=== PATIENT | male | born 1950 | race Caucasian/White ===

== ENCOUNTER 2022-06-23 09:00 | Inpatient (IN) ==
[~2022-06-23 09:00] MED LIST: LACTATED RINGERS 1,000 ML IV SCH; ceFAZolin 2,000 MG/50 ML DUPLEX IV ONE
[2022-06-23] MEDS ORDERED: DIAZEPAM 5 MG TABLET PO ONE (10:00)
[2022-06-23] MEDS ORDERED: GABAPENTIN 400 MG CAPSULE PO ONE (10:00)
[2022-06-23] MEDS ORDERED: ACETAMINOPHEN 500 MG TABLET PO ONE (10:00)
[2022-06-23] MEDS ORDERED: LIDOCAINE 1% 5 ML VIAL ONE (10:52)
[2022-06-23] MEDS ORDERED: BUPIVACAINE MPF 0.25% 10 ML VIAL ONE (10:52)
[2022-06-23] MEDS ORDERED: TISSUE ADHESIVE 1 EACH APPLICATOR TOP ONE (10:52)
[2022-06-23] MEDS ORDERED: DEXAMETHASONE 4 MG/1 ML VIAL ONE ×3 (11:08→14:08)
[2022-06-23] MEDS ORDERED: LIDOCAINE 2% 5 ML VIAL ONE (11:08)
[2022-06-23] MEDS ORDERED: propofoL 200 MG/20 ML VIAL IV ONE (11:08)
[2022-06-23] MEDS ORDERED: ONDANSETRON 4 MG/2 ML VIAL ONE (11:08)
[2022-06-23] MEDS ORDERED: ROCURONIUM 50 MG/5 ML VIAL IV ONE (11:08)
[2022-06-23] MEDS ORDERED: SEVOFLURANE 1 UNIT/15 MINUTE INH ONE ×11 (11:08→13:11)
[2022-06-23] MEDS ORDERED: fentaNYL 100 MCG/2 ML VIAL ONE ×2 (11:14→13:54)
[2022-06-23] MEDS ORDERED: ACETAMINOPHEN INJ 1,000 MG/100 ML VIAL IV ONE (11:16)
[2022-06-23] MEDS ORDERED: ePHEDrine 50 MG/ML VIAL ONE (11:42)
[2022-06-23] MEDS ORDERED: GLYCOPYRROLATE 0.4 MG/2 ML VIAL ONE (12:03)
[2022-06-23] MEDS ORDERED: PHENYLEPHRINE 1 MG/10 ML SYRINGE IV ONE ×3 (12:03→13:11)
[2022-06-23] MEDS ORDERED: ROPIVACAINE 0.5% 30 ML VIAL ONE (14:08)
[2022-06-23] MEDS ORDERED: SUGAMMADEX 200 MG/2 ML VIAL IV ONE (14:32)
[2022-06-23] MEDS ORDERED: MEPERIDINE 25 MG/1 ML VIAL IV PRN (15:21)
[2022-06-23] MEDS ORDERED: ONDANSETRON 4 MG/2 ML VIAL IV PRN ×2 (15:21→17:06)
[2022-06-23] MEDS ORDERED: diphenhydrAMINE 50 MG/1 ML VIAL IV PRN (15:21)
[2022-06-23] MEDS ORDERED: PROMETHAZINE INJ 25 MG in SODIUM CHLORIDE 0.9% 50 ML IV PRN (15:21)
[2022-06-23] MEDS: HYDROmorphone 1 MG/1 ML SYRINGE IV PRN ×4 (15:40→15:55)
[2022-06-23] MEDS ORDERED: PROMETHAZINE 25 MG/1 ML VIAL ONE (16:04)
[2022-06-23] MEDS ORDERED: HYDROmorphone 1 MG/1 ML SYRINGE IV PRN (17:06)
[2022-06-23] MEDS ORDERED: clonazePAM 0.5 MG TABLET PO PRN (17:06)
[2022-06-23] MEDS ORDERED: PROMETHAZINE 25 MG/1 ML VIAL IM PRN (17:06)
[2022-06-23] MEDS: GABAPENTIN 300 MG CAPSULE PO SCH ×2 (17:24→20:47)
[2022-06-23] MEDS: KETOROLAC 15 MG/1 ML VIAL IV SCH ×2 (17:25→23:01)
[2022-06-23] MEDS: LACTATED RINGERS 1,000 ML IV SCH ×2 (17:25→22:59)
[2022-06-23 17:32] LABS: Basophils # 0.1 10*3/uL (0.0-0.2); Basophils % 0.3 % (0.0-0.8); Eosinophils % 0.2 % (0.00-10.9); Hematocrit 43.5 VOL% (42.0-52.0); Hemoglobin 14.2 GM/DL (14.0-18.0); Immature Granulocytes % 0.8 %; Immature Granulocytes Absolute 0.14 #; Lymphocytes # 1.9 10*3/uL (1.4-4.0); Lymphocytes % 10.2 % (21.2-54.2); Mean Corpuscular HGB Conc 32.6 GM/DL (32-36); Mean Corpuscular Volume 85.3 FL (87-102); Mean Platelet Volume 9.4 FL (9.6-12.0); Monocytes # 0.5 10*3/uL (0.11-0.8); Monocytes % 2.5 % (1.7-12.7); Platelet Count 209 T/CUMM (130-400); Red Cell Distribution Width 13.3 % (9.3-17.3); White Blood Count 18.3 T/CUMM (4-12)
[2022-06-23 17:52] LABS: Calcium 8.2 MG/DL (8.5-10.1); Osmolality,Calculated 285.3 MOS/KG (273-304); Potassium 3.6 MMOL/L (3.5-5.1)
[2022-06-24 04:56] LABS: Basophils % 0.1 % (0.0-0.8); Hematocrit 41.3 VOL% (42.0-52.0); Hemoglobin 13.2 GM/DL (14.0-18.0); Immature Granulocytes % 0.9 %; Immature Granulocytes Absolute 0.18 #; Lymphocytes # 2.1 10*3/uL (1.4-4.0); Lymphocytes % 10.6 % (21.2-54.2); Mean Corpuscular Volume 87.7 FL (87-102); Mean Platelet Volume 9.7 FL (9.6-12.0); Monocytes # 1.4 10*3/uL (0.11-0.8); Monocytes % 6.7 % (1.7-12.7); Neutrophils % 81.7 % (38.7-73.9); Platelet Count 215 T/CUMM (130-400); Red Blood Count 4.71 MC/CUMM (3.8-5.5); Red Cell Distribution Width 13.7 % (9.3-17.3); White Blood Count 20.1 T/CUMM (4-12)
[2022-06-24 05:15] LABS: Lymphocytes 9 % (20-55); Total Cells Counted 100
[2022-06-24 05:16] LABS: Microcytosis Slight; Ovalocytes Slight; Platelet Estimate Normal
[2022-06-24 05:17] LABS: Calcium 8.1 MG/DL (8.5-10.1); Osmolality,Calculated 284.5 MOS/KG (273-304); Potassium 4.9 MMOL/L (3.5-5.1)
[2022-06-24] MEDS: KETOROLAC 15 MG/1 ML VIAL IV SCH ×2 (05:23→11:56)
[2022-06-24] MEDS: LACTATED RINGERS 1,000 ML IV SCH (05:25)
[2022-06-24] MEDS: GABAPENTIN 300 MG CAPSULE PO SCH (08:24)
[2022-06-24] MEDS ORDERED: ENOXAPARIN 40 MG/0.4 ML SYRINGE SUBCUT SCH (09:00)
[2022-06-24] MEDS ORDERED: PANTOPRAZOLE 40 MG TABLET PO SCH (09:00)
[2022-06-24 11:09] VITALS: BP 128/64
[2022-06-24] MEDS ORDERED: clonazePAM 0.5 MG TABLET PO SCH (15:00)
== END 2022-06-24 13:50 | disposition home or self-care (01) | DRG 358 ==
LOC: N.OR 09:00 → N.SDSINP 09:06 → N.3E 16:26
PROVIDERS: ADMIT Surgery; ATTEND Surgery